=== PATIENT | female | born 1950 | race Caucasian/White ===

== ENCOUNTER 2016-07-09 13:12 | Day surgery (SDC) | payer OTHER ==
[~2016-07-09] VITALS: Ht 165.1 cm; Wt 115.0 kg
[2016-07-09] VITALS (13 sets, daily range): BP systolic 164–220; BP diastolic 67–98; PULSE 85–97; RESP 9–18; O2SAT 93–98
--- NOTE | 2016-07-09 06:42 | PCM.HPANE ---
Patient Data Surgeon Admitting Provider: Attending Provider:Aldo Vazquez MD Primary Care Physician:Other,Physician Other Provider:Jami Rose Anesthesia Reason for Visit Left Distal Radius Fracture Ht/WT & BMI Height (Feet): 5 Height (Inches): 5 Weight (Kilograms): 115.66 Body Mass Index 42.00 Allergies Coded Allergies: Penicillins (Verified Allergy, Unknown, 07/09/16) chlorhexidine (Verified Allergy, Unknown, 07/09/16) Past Anesthesia History Anesthesia History: Denies:: Anesthesia Reactions Medications Reported Medications Ibuprofen 200 Mg [id number] Mg PO Q6H PRN For Pain Ref 0 07/08/16 Hydrocodone-Acetaminophen 5-325 mg 1 Each Tablet1 Tablet PO Q4H PRN For Pain Ref 0 07/08/16 History History of ENT Problems?: No Hx of Heart Problems?: No Hx of Respiratory Problem?: No Respiratory History: Denies:: Oxygen Administration Use of C-PAP Machine Hx Neurologic Problems?: No Hx of GI Problems?: No Hx of Problems?: No Female Hx: Positive for:: Problems with Breasts? (per EMR- hx of breast ca) Skin History: Denies:: History Skin Disorders? Pressure Ulcers Hx Musculoskeletal Problems?: Yes Musculoskeletal History: Positive for:: Musculoskeletal Trauma (fx left wrist current admission problem) Hx Surgeries?: Yes (carpal tunnel x 2, achilles tendon) Hx Any Other Health Problems?: Yes Other History: Positive for:: Cancer (breast) Denies:: Thyroid Disease Hx Alcohol Use: NoHx Substance Use: NoHave You Smoked inLast 12 mo: No Stop/Bang P-Blood Pressure: treated: No B- Body Mass Index > 35 kg/m2: Yes A- Age over 50: Yes N- Neck Large Circumference: Yes G- Gender Male: No Risk Assessment Category Category 1A: Patient has history of documented sleep apnea, and HAS NOT received any narcotic, sedative or anesthesia administration during this stay. Category 1B: Patient has history of documented sleep apnea, and HAS received any narcotic , sedative or anesthesia administration during this stay Category 2: Patient has SUSPECTED Obstructive Sleep Apnea, and HAS received any narcotic , sedative or anesthesia administration during this stay. Category 3: Patient has SUSPECTED Obstructive Sleep Apnea and HAS NOT received narcotic, sedative or anesthesia administration during this stay. Category 4: Outpatient in Procedural Areas with known sleep apnea or who screen positive for High Risk via the STOP/BANG questionnaire. Plan Impression Patient chart reviewed, patient interviewed and anesthestic plan with risks, benefits, and alternatives discussed, and informed consent obtained. Other case transferred to the care of Junior Mccord MD Jul 09, 2016 06:42
[~2016-07-09 13:12] MED LIST: Clindamycin Inj 600 MG in IV Premix 1 EACH IV ONE; HYDR-4003 PO; IBUP200C PO
[2016-07-09] MEDS ORDERED: fentaNYL-PF 50 mCg/mL 2 mL Inj ONE ×2 (13:13→17:40)
[2016-07-09] MEDS ORDERED: Ondansetron 2 mg/mL 2 mL Inj ONE (13:13)
[2016-07-09] MEDS ORDERED: Propofol 10,000 mCg/mL 20 mL Inj ONE (13:13)
[2016-07-09] MEDS ORDERED: Dexamethasone 4 mg/mL Inj ONE (13:13)
[2016-07-09] MEDS ORDERED: Lactated Ringer's 1,000 ML IV ONE (13:29)
[2016-07-09] MEDS ORDERED: Clindamycin 600 mg/50 mL D5W Premix IV ONE (13:31)
[2016-07-09] MEDS ORDERED: Ketorolac 15 mg/mL Inj IVPUSH ONE (15:20)
[2016-07-09] MEDS ORDERED: HYDROcodone-APAP 5-325 mg Tablet PO PRN (15:20)
--- NOTE | 2016-07-09 15:24 | PCM.ORTHOP ---
Orthopedic Operative Report Date of Service: Jul 09, 2016 Pre Operative Diagnosis Left distal radius and ulna fracture Post Operative Diagnosis Same Procedure Left open distal radius open reduction internal fixation, greater than 3 fragments, closed reduction with manipulation of the ulnar styloid fracture, washout of open wound Surgeon Surgeon: Aldo Vazquez MD Assistants: Issac Lundberg Indication for Procedure Left open distal radius and ulna fracture Findings Left open distal radius and ulna fracture, comminuted intra-articular greater than 3 fragments distal radius with ulnar styloid fracture Details of Procedure Findings: comminuted intraarticular fracture of distal radius, open ulnar styloid fracture, Fluoroscopic imaging after ORIF shows good alignment of distal radius and no hardware complications Specimens: None Patient Status: Patient was extubated and taken to recovery room in stable condition. Procedure: Indications: Tanner is a 65-year-old female who sustained a left open distal radius and ulna fracture after fall on outstretched hand. A clear explanation was given to the patient regarding the condition present, and the available conservative and surgical options. It was emphasized that the risks and benefits of surgery include but are not limited to infection, wound healing problems, damage to adjacent structures such as nerves, blood vessels and tendons, senior care disability and pain, arthritis, hypersensitivity, deep vein thrombosis, pulmonary embolism, broken hardware, failure of surgery, need for further procedures at time of surgery or later, cast related problems, loss of limb or life. The patient was given an explanation and the patient voiced understanding of what to expect after the procedure or surgery, the limitations in activities of daily living, the likely duration for post operative recovery and the instructions that are to be followed. At the end the patient was invited to seek clarification or ask further questions but there were none. The patient voiced understanding of the entire consultation. Description of Procedure: Patient was taken to operating room and transferred to operating table in supine position. Time out was performed with both anesthesia and orthopaedics faculty present to confirm details of case to be performed. After time out performed, patient placed under general anesthesia and endotracheal tube secured into place. Once endotracheal tube secured, proximal arm tourniquet was placed over softroll and secured with tape. Patient position was again checked to ensure all bony prominences adequately padded. The left arm was prepped and draped in the usual sterile fashion to the level of the tourniquet. The cleft upper extremity was then exsanguinated with an esmark and the tourniquet was then inflated to 250 mmHG. Incision was made approximately 5 cm long over the course of the flexor carpi radialis (FCR) tendon. Hemostasis was controlled with electrocautery. The flexor carpi radialis tendon sheath was identified. The sheath was then entered with tenotomy scissors and released. The FCR tendon sheath was dissected distally to the level of the superficial radial artery. The FCR tendon was retracted towards the ulna to protect the median nerve. At this time the radial artery was identified and protected and retracted towards the radial side. Incision through the floor of the FCR sheath was performed. The pronator quadratus was identified and released by sharp dissection over the radial and distal edge by making a L incision. A periosteal elevator was used to elevate the pronator quadratus to expose the volar surface of the radius. The fracture site was identified and the distal fragment was released and freed up using a freer elevator. The extent of comminution was appreciated at this time. There was note comminution readily apparent with elevation of the distal fragment. The fracture site was debrided with a rongeur and curette. The fracture was reduced and secured with a K-wire. This was confirmed with fluoroscopy. Once the distal fragments were mobilized the fracture was then reduced by placing the Arthrex volar plate on the radial shaft and securing it distally with 2 K- wires through the plate. After verifying plate alignment and location of the wires close to subchondral bone, the distal row was fixed with smooth pegs. Then using a buttress effect the distal fragments were levered into a reduced position and secured with cortical shaft screws. Fluoroscopy confirmed acceptable reduction. Once the plate placement was appropriate the distal drill holes were drilled and filled with smooth peg locking screws. Proper plate alignment and screw placement was checked once more with fluoroscopy in both the AP and lateral views. Final plate position was confirmed with orthogonal views with fluoroscopy imaging that was saved in PACs. The ulnar styloid was closed reduced and the DRUJ was noted to be stable while performing fluoroscopic exams. The volar wound as well as the open ulnar wound was then thoroughly irrigated with copious NS. The pronator quadratus was reapproximated with 3-0 Vycril suture. Subcutaneous closure completed with 4-0 Vycril suture and skin closure with 3-0 Nylon suture. Sterile dressing was placed on the incision as well as the hand and forearm which was then wrapped with soft roll. A volar resting splint was applied to the left forearm and wrapped with Benjamin wraps. A shoulder sling was also placed for comfort. Patient was then awoken from anesthesia and extubated, his neurovascular status was intact when checked in PACU. Patient tolerated procedure well and there were no complications. I was present and scrubbed for the entire procedure. FAC ENGINEER SURGEON: During the operation, the services of physician surgical assistant certified were medically indicated and necessary to provide exposure of the operative site for the surgical procedure and to maintain the limb in a proper position to carry out the operation safely and efficiently. Without the qualified clinical trials assistant being present, it would have extended the operative procedure and made the procedure technically more difficult to perform. Grafts, Implants: Implants-See Implant Record Complications There were no periprocedural complications identified. Condition Stable Anesthetic Administered: GA Catheters: None Output, Estimated Blood Loss: 15 Blood Admin during surgery: No Surgical Cast or Splint: Short Arm Splint Surgical Specimen Removed: No Specimen sent to Pathology: No copies to: Aldo Vazquez MD, Christopher L MD Jul 09, 2016 15:24
[2016-07-09] MEDS ORDERED: Lactated Ringer's 1,000 ML IV SCH (16:18)
[2016-07-09] MEDS ORDERED: Lactated Ringer's 500 ML IV PRN (16:18)
[2016-07-09] MEDS ORDERED: Ondansetron 2 mg/mL 2 mL Inj IVPUSH PRN (16:20)
[2016-07-09] MEDS ORDERED: Phenylephrine 10,000 mCg/mL Inj IVPUSH PRN (16:20)
[2016-07-09] MEDS ORDERED: Dexamethasone 4 mg/mL Inj IVPUSH PRN (16:20)
[2016-07-09] MEDS ORDERED: EPHEDrine Sulfate 50 mg/mL Inj IVPUSH PRN (16:20)
[2016-07-09] MEDS ORDERED: Ropivacaine-PF 0.5% 30 mL Inj INFILTRATE ONE (16:24)
[2016-07-09] MEDS ORDERED: Bacitracin 50,000 unit Inj IRRIGATION ONE (16:30)
[2016-07-09] MEDS: fentaNYL-PF 50 mCg/mL 2 mL Inj IVPUSH PRN ×4 (17:43→18:12)
[2016-07-09] MEDS: HYDROmorphone 1 mg/mL Inj IVPUSH PRN ×3 (17:45→18:07)
--- NOTE | 2016-07-09 17:52 | PCM.ANEP1 ---
Post Anesthesia Phase 1 PACU Phase 1 Assessment Date of Service: Jul 09, 2016 Vital Signs Vital Signs Date Time Temp Pulse Resp B/P Pulse Ox O2 Delivery O2 Flow Rate FiO2 07/09/16 17:45 93 13 198/80 94 Nasal Cannula 4 07/09/16 17:40 96 15 203/84 93 Nasal Cannula 4 07/09/16 17:35 97 15 186/94 93 Nasal Cannula 3 07/09/16 17:33 36.2 164/88 07/09/16 13:48 CPAP/BIPAP 07/09/16 13:45 220/77 07/09/16 13:41 36.3 85 18 98 Room Air Anesthetic Administered: GA Level of Alertness: Sleepy, easy to arouse ALMENDAREZ's with Equal Strength: Yes Pain: Yes Nausea or Vomiting: No Oxygen Delivery: Room Air Lungs: Clear to Auscultation Dermatome Level: Full Sensation Teo Conklin MD Jul 09, 2016 17:52
--- NOTE | 2016-07-09 18:40 | PCM.ANEP2 ---
Post Anesthesia Evaluation ASA/CMS Post Anesthesia VS in Patient's Normal Range?: Yes Resp Stable; Airway Patent?: Yes CV Function & Hydration Stable: Yes Mental Status Recovered?: Yes Pain control Satisfactory?: Yes N/V Control Satisfactory?: Yes Teo Conklin MD Jul 09, 2016 18:40
[2016-07-09] MEDS: MetoCLOpramide 5 mg/mL 2 mL Inj IVPUSH PRN ×2 (18:58→19:23)
== END 2016-07-09 23:59 | disposition home or self-care (01) ==
LOC: SAS 13:12
PROVIDERS: ATTEND Orthopaedic Surgery
DX: S52.572A Other intraarticular fracture of lower end of left radius, initial encounter for closed fracture (principal); S52.612A Displaced fracture of left ulna styloid process, initial encounter for closed fracture
CPT/HCPCS: 25609; 25652; 76000; C1713; J1100; J1170; J1885; J2250; J2405; J2765; J2795; J7120